=== PATIENT | male | born 1970 | race Two or more races ===

== ENCOUNTER 2024-03-07 05:52 | Day surgery (SDC) | payer OTHER, SELFPAY ==
[2024-02-29 09:42] VITALS: BMI 34.9
[2024-02-29 10:09] LABS: % Basophils 0.6 % (0-2); % Eosinophils 3.2 % (0-6); % Immature Granulocytes 0.5 % (0-0.5); % Lymphocytes 33.3 % (20.5-51.1); % Monocytes 10.3 % (1.7-9.3); % Neutrophils 52.1 % (42.2-75.2); Absolute Eosinophils 0.2 10^3/uL (0-0.7); Absolute Lymphocytes 2.2 10^3/uL (1.2-3.4); Absolute Monocytes 0.7 10^3/uL (0.1-0.6); Absolute Neutrophils 3.5 10^3/uL (1.4-6.5); Hematocrit 43.3 % (39.0-52.0); Hemoglobin 15.3 g/dL (13.0-18.0); Mean Corp Hgb Conc. 35.3 g/dL (33.0-37.0); Mean Corpuscular Hgb 29.3 pg (27.0-31.0); Mean Platelet Volume 11.1 fL (7.4-10.4); Nucleated Red Blood Cells % 0 % (-); Platelet Count 232 10^3/uL (130-400); Red Blood Cell Count 5.22 10^6/uL (4.70-6.10); Red Cell Dist. Width 12.4 % (11.5-14.5); White Blood Cell Count 6.6 10^3/uL (4.8-10.8)
[2024-02-29 10:22] LABS: INR 1.35; PT 16.5 Sec (11.4-14.6)
[2024-02-29 10:41] LABS: ALT (SGPT) 34 U/L (0-50); AST (SGOT) 24 U/L (17-59); Albumin 4.5 g/dl (3.5-5.0); Alkaline Phosphatase 82 U/L (38-126); Blood Urea Nitrogen 16 mg/dl (9-20); Calcium 9.8 mg/dl (8.4-10.2); Carbon Dioxide 28 mmol/L (22-30); Chloride 101 mmol/L (98-107); Estimated Creatinine Clearance > 125 ml/min; Glucose 273 mg/dl (70-99); Magnesium 1.7 mg/dl (1.6-2.3); Potassium 4.7 mmol/L (3.5-5.1); Sodium 141 mmol/L (135-145); Total Bilirubin 0.4 mg/dl (0.2-1.3); Total Protein 7.4 g/dl (6.3-8.2); eGFR > 60.00
--- NOTE | 2024-02-29 10:49 | SLEEP.APNEA ---
Sleep Apnea Order
-
Patient screened as High Risk for Sleep Apnea on Stop Bang Questionnaire. Patient referred to [facility] for Pre-Study.

Name: CHRISSY SERRANO
: 1970
Home Phone: Use [email or web address] instead
Cell Phone: [f_Reg Other Phone]
Work Phone:
Address: [address] [place] [address]
City: [place]
State: [place]
Zip: [f_[facility] Zip]
Family Physician: Tamiko Nicolas
Height 5 ft 7 in
Actual Weight 101.1 kg
Body Mass Index (BMI) 34.9
Ordering Provider: Belén Neal
[2024-02-29 11:55] LABS: Free T3 3.48 pg/ml (2.77-5.27)
[2024-02-29 12:09] LABS: TSH 1.44 uIU/ml (0.47-4.68)
[2024-03-07] VITALS (14 sets, daily range): BP systolic 83–142; BP diastolic 60–93
[2024-03-07 07:02] LABS: Glucose - Point of Care 198 mg/dl (70-99)
[2024-03-07 08:45] LABS: ACT-LR - POC 363 Seconds (116-155)
[2024-03-07 09:05] LABS: ACT-LR - POC 285 Seconds (116-155)
[2024-03-07 09:25] LABS: ACT-LR - POC 337 Seconds (116-155)
--- NOTE | 2024-03-07 09:48 | ITS.CL.ABL ---
[employer] - Ablation
Ablation
Procedure Report:
ELECTROPHYSIOLOGY ABLATION STUDY
�
DATE:: March 07, 2024�����������������������������REFERRING: Dr. Gilbert Trujillo
�
INDICATION: Persistent supraventricular tachycardia in the form of atrial fibrillation.� As above
�
HISTORY: See H and P.��Prior pulmonary vein isolation at [facility] in 2019 with reisolation of the pulmonary veins and left atrial posterior wall isolation in 2022 with radiofrequency energy who presents with recurrent atrial fibrillation
for approximately 2 months.
�
ANTIARRHYTHMIC DRUG prior sotalol use
�
PRE-PROCEDURE DELORES: No atrial thrombus
�
PRESENTING RHYTHM: Atrial fibrillation
�
'TIME-OUT':��called and confirmed.
�
SEDATION/ANESTHESIA:��provided via the anesthesia department using general anesthesia (LMA).
�
INTRAVENOUS/ARTERIAL ACCESS:
Right femoral venous - 8Fr
Left femoral venous - 8 Fr, 6 Fr
Vascade closure was utilized in the right groin. Cadasb-um-cjuhh suture was utilized in the left groin.
Ultrasound guidance for bilateral femoral vein access was utilized by me to obtain access with demonstration of normal anatomy
CHADS-VASC Score:
�
HAS-Bled Score
�
PROCEDURE:
1.��A decapolar CS catheter was placed within the CS for mapping and pacing.��This was also used as the reference catheter for the 3-D map.
�
2. The intracardiac ultrasound catheter was positioned in the RA to identify the FO for targeting of transseptal puncture, assist��in identification of the pulmonary vein ostia, monitoring pre and post ablation pulmonary vein flow velocities,
monitoring for 'bubble' formation during RF application as a sign of thermal injury,��and to monitor for pericardial effusion during mapping and ablation procedure.���Left atrial size, LV ejection fraction, and pulmonary vein flows were monitored
pre and post ablation procedure. The other valves were inspected and found to be free of significant regurgitation or stenosis. There is no pericardial effusion at baseline or at the end of the procedure. Of note the patient did have an
inflammatory small pericardial effusion after a second procedure at a 3-month echocardiogram which resolved over time.
�
3.��Half of the calculated heparin bolus was administered prior to the first transeptal puncture.��Transseptal puncture was performed to diagnose RA and LA pressure so that safety of LA mapping and ablation could be further assessed, and to access
the left atrium and pulmonary veins for mapping and ablation.��This entailed advancing an 10 Bulgarian steerable sheath with dilator into the superior vena cava and withdrawing both (monitoring intracardiac ultrasound, fluoroscopy and tip pressure)
with the tip oriented toward the atrial septum.��The fossa ovalis was engaged (indicated by sudden displacement of the sheath tip as well as tenting of the fossa seen on intracardiac ultrasound).��Left atrial access required a pass with the
Brockenbrough needle extended.��Left atrial catheter position was confirmed by pressure monitoring (RA mean pressure 8 mm Hg and LA mean presure 14 mm Hg), LA saturation (99%),��as well as fluoroscopy.��The sheath was advanced over the dilator and
positioned in the left atrium.��Over a ProTrac wire and dilation in the right femoral vein the 16 Bulgarian Contour sheath was brought up to the left atrium. �The remainder of the calculated heparin bolus was administered and heparin was
infused to maintain ACT at 300 -350 seconds throughout the case.
�
4.��RA pacing was performed via the proximal decapolar poles and LA pacing was performed via the distal decapolr poles.
�
5. A quadrapolar catheter was first positioned at the His position for His Bundle recording which was tagged via the 3-D Navex sytem, and then passed to the RVA for RV pacing and recording.
�
6. The multipolar catheter and the PFA catheter were placed in each of the LIPV, LSPV, RSPV and the RIPV.��
�
7.��Next, a 3-D map was created using Navex.���A 3-D reconstructed CT image was compared to the 3-D Navex map to assist in anatomic interpretation, mapping and ablation.��The CT image and the NavX image were fused.
�
8. A small area of reconnection on the septal aspect of the right superior pulmonary vein. The floor and low posterior wall remained isolated from prior procedure with ingrowth from the roof down towards the phil and the middle aspect of the
posterior wall. There were areas of noncapture below the pericardial reflection in the low posterior wall at baseline. We then performed 51 lesions with PFA to the roof middle of the LA posterior wall, floor of the posterior wall and into the
right superior pulmonary vein circumferentially. This rendered entrance and exit block in all 4 pulmonary veins and from the anterior roof down through the floor of the left atrial posterior wall. There was noncapture in each of these regions. A
single 300 J biphasic shock was delivered to restore atrial fibrillation prior to mapping in sinus rhythm. The patient was noninducible for any other tachyarrhythmias.
Additional substrate in the interatrial septum, anterior left atrium to the left superior pulmonary vein and floor of the left atrium was performed.
�
RF was delivered using a temperature controlled system with an 8mm Blazer and power set to 50-60 anderson and temperature to 55 degrees.��RF was deivered for a minimum of 10 seconds to a maximum of 20 seconds at each targeted site, or until the local
map Eg was diminished to <0.5mV amplitude.
�
9. Normal sinus node and AV kimberley function.
TOTAL FLOURO TIME: 20.7 minutes
�
TOTAL RF DURATION: 0 minutes
�
REVERSAL OF HEPARIN: 40 mg of protamine, slow IV administration
�
COMPLICATIONS:
None
Intracardiac US shows no pericardial effusion post ablation.
�
SUMMARY:��
Complex left atrial mapping and ablation.
Reisolation of the right superior pulmonary vein as well as reisolation of the left atrial posterior wall particularly in the roof centrally down towards the phil level.
�
RECOMMENDATIONS:
1. Ambulate in 4 hours
2. Resume anticoagulation
3.��Consider same-day discharge
4.��With any clinical recurrence would consider reinitiation of sotalol therapy or consider epicardial ablation with the convergent manage approach. Reiterated the importance of risk factor modification to the patient including treatment of his
sleep apnea, minimization of alcohol and weight control
�
Copy to: Dr. Gilbert Trujillo
�
--- NOTE | 2024-03-07 14:32 | W.PN.UPDATE ---
Update Note
Progress Note Update
Pt seen post PFA. Right groin with vascade closure, mild ooze noted, steri strip applied w/gauze dressing. Left groin with FOE, no ht/bleeding, non tender. OOB to bathroom. Post EK GNSR w/1st deg AVB 60s, no acute changes. Resume xarelto tonight at
usual time and continue other meds as before. Followup w/Dr. Trujillo as scheduled.
Pt aware that he may not drive for 24 hours and must have someone with him this evening at home. He states that his ride is unable to come but is calling an uber. It was strongly discouraged and recommended that he try to find another ride or stay
overnight. He refuses and will leave via uber, against medical judgement. He states someone is staying with him tonight.
== END 2024-03-07 15:15 | disposition home or self-care (01) ==
LOC: CATH 05:52
PROVIDERS: ATTENDING PHYSICIAN Internal Medicine Cardiovascular Disease; FAMILY PHYSICIAN Internal Medicine; OTHER PHYSICIAN Internal Medicine Cardiovascular Disease
DX: I48.19 Other persistent atrial fibrillation (principal); I47.10 Supraventricular tachycardia, unspecified; I10 Essential (primary) hypertension; E11.9 Type 2 diabetes mellitus without complications; E78.5 Hyperlipidemia, unspecified; Z72.0 Tobacco use; E66.9 Obesity, unspecified; Z68.34 Body mass index [BMI] 34.0-34.9, adult; Z79.01 Long term (current) use of anticoagulants; Z79.84 Long term (current) use of oral hypoglycemic drugs
CPT/HCPCS: C1732; C1894; C1730; C1733; C1769; C1766; C1759; 36415; 80053; 82962; 83735; 84439; 84443; 84481; 85025; 85347; 85610; 86850; 86900; 86901; 93005; 93656; C1760; C1892